=== PATIENT | male | born 1950 | race Caucasian/White ===

== ENCOUNTER 2024-04-06 13:18 | Inpatient (IN) | payer OTHER, MEDICARE ==
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
[2024-04-06] MEDS: HYDROmorphone 0.5 MG/0.5 ML SYRINGE IVP STA (14:50)
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
[2024-04-06 16:02] LABS: Basophils % (A) 0 %; Eosinophils % (A) 0 %; HCT 41.2 % (39.0-53.0); HGB 13.2 gm/dL (13.0-17.5); Hypochromasia Moderate; Lymphocytes # (A) 0.8 k/uL (1.0-4.8); Lymphocytes % (A) 5 %; MCH 29.2 pg (25.0-35.0); MCV 91.3 fL (80.0-100.0); Mean Platelet Volume 7.7; Monocytes # (A) 0.7 k/uL (0-1.0); Monocytes % (A) 4 %; Neutrophils # (A) 15.3 k/uL (1.3-7.7); Neutrophils % (A) 90 %; Platelet Count 241 k/uL (150-450); RBC 4.52 m/uL (4.30-5.90); RDW 14.5 % (11.5-15.5); WBC 16.9 k/uL (3.8-10.6)
[2024-04-06] MEDS: SODIUM CHLORIDE 0.9% 1,000 ML IV ONE (16:49)
[2024-04-06] MEDS: HYDROmorphone 0.5 MG/0.5 ML SYRINGE IVP PRN (16:51)
[2024-04-06 17:16] LABS: ALT 16 U/L (4-49); AST 25 U/L (17-59); African American GFR (CKD) >90 (>60 ml/min/1.73 sqM); Albumin 3.3 g/dL (3.5-5.0); Alkaline Phosphatase 173 U/L (38-126); Anion Gap 11 mmol/L; Blood Urea Nitrogen 27 mg/dL (9-20); Calcium 8.4 mg/dL (8.4-10.2); Carbon Dioxide 22 mmol/L (22-30); Chloride 105 mmol/L (98-107); Glucose 155 mg/dL (74-99); Non-African American GFR(CKD) 79 (>60 ml/min/1.73 sqM); Potassium 3.6 mmol/L (3.5-5.1); Sodium 138 mmol/L (137-145); Total Bilirubin 0.4 mg/dL (0.2-1.3); Total Protein 5.9 g/dL (6.3-8.2)
[2024-04-06] MEDS ORDERED: DEXTROSE 50% SYRINGE 50 ML IVP PRN ×2 (17:51)
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
[2024-04-06 20:19] LABS: Prothrombin Time 10.7 sec (10.0-12.5)
[2024-04-06 20:20] LABS: Partial Thromboplastin Time 23.6 sec (22.0-30.0)
[2024-04-06 21:03] LABS: Glucose,Whole Blood 180 mg/dL (70-110)
[2024-04-06] MEDS: ACETAMINOPHEN TAB 325 MG TAB PO PRN (21:49)
[2024-04-06] MEDS: INSULIN ASPART (NovoLOG) 100 UNIT/ML VIAL SQ SCH (21:50)
[2024-04-06] MEDS: METOPROLOL TARTRATE 25 MG TAB PO SCH (21:50)
[2024-04-06] MEDS: ONDANSETRON 4 MG/2 ML VIAL IVP PRN (21:54)
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
[2024-04-07] MEDS: MORPHINE SULFATE 2 MG/ML SYRINGE IVP PRN (01:09)
[2024-04-07 06:17] LABS: Glucose,Whole Blood 138 mg/dL (70-110)
[2024-04-07] MEDS: LEVOTHYROXINE 75 MCG TAB PO SCH (06:30)
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
[2024-04-07] MEDS ORDERED: PROPOFOL 10 MG/ML 20 ML VIAL IV ONE (09:00)
[2024-04-07] MEDS ORDERED: TRANEXAMIC 1,000 MG/100ML-NACL PREMIX BAG ONE (09:00)
[2024-04-07] MEDS ORDERED: ONDANSETRON 4 MG/2 ML VIAL ONE (09:00)
[2024-04-07] MEDS ORDERED: PHENYLEPHRINE 10 MG/ML VIAL ONE (09:00)
[2024-04-07] MEDS ORDERED: SUCCINYLCHOLINE CHLORIDE 200 MG/10 ML VIAL IV ONE (09:00)
[2024-04-07] MEDS ORDERED: fentaNYL (PF) 50 MCG/ML 2 ML AMP ONE (09:00)
[2024-04-07] MEDS ORDERED: NEOSTIGMINE 1 MG/ML 10 ML VIAL ONE (09:00)
[2024-04-07] MEDS ORDERED: GLYCOPYRROLATE 0.2 MG/ML 2 ML VIAL ONE (09:00)
[2024-04-07] MEDS ORDERED: ROCURONIUM 10 MG/ML (5 ML VIAL) IV ONE (09:00)
[2024-04-07] MEDS ORDERED: DEXAMETHASONE SOD PHOSPHATE 4 MG/ML 1 ML VIAL ONE (09:00)
[2024-04-07] MEDS ORDERED: KETAMINE HCL IN 0.9 % NACL 50 MG/5 ML SYRINGE ONE (09:00)
[2024-04-07] MEDS ORDERED: ePHEDrine 50 MG/ML 1 ML VIAL ONE (09:00)
[2024-04-07 09:04] LABS: Glucose,Whole Blood 135 mg/dL (70-110)
[2024-04-07] MEDS: LACTATED RINGERS 1,000 ML IV ONE ×2 (09:05)
[2024-04-07 09:37] LABS: ALT 16 U/L (10-49); AST 26 U/L (14-35); Albumin 3.8 g/dL (3.8-4.9); Albumin/Globulin Ratio 1.52 Ratio (1.60-3.17); Alkaline Phosphatase 158 U/L (41-126); Blood Urea Nitrogen 25.1 mg/dL (9.0-27.0); Calcium 8.9 mg/dL (8.7-10.3); Carbon Dioxide 26.4 mmol/L (21.6-31.8); Chloride 101 mmol/L (96-109); Globulin 2.5 g/dL (1.6-3.3); Glucose 148 mg/dL (70-110); Potassium 4.8 mmol/L (3.5-5.5); Sodium 139 mmol/L (135-145); Total Bilirubin 0.4 mg/dL (0.3-1.2); Total Protein 6.3 g/dL (6.2-8.2)
[2024-04-07 09:58] LABS: Basophils # (A) 0.02 X 10*3/uL (0.00-0.10); Basophils % (A) 0.2 %; Eosinophils # (A) 0.01 X 10*3/uL (0.04-0.35); Eosinophils % (A) 0.1 %; HCT 41.7 % (39.6-50.0); HGB 12.1 g/dL (13.0-17.0); Lymphocytes # (A) 0.92 X 10*3/uL (0.90-5.00); MCH 27.4 pg (27.0-32.0); MCV 94.3 FL (80.0-97.0); Mean Platelet Volume 11.2 FL (9.5-12.2); Monocytes # (A) 0.89 X 10*3/uL (0.20-1.00); Monocytes % (A) 7.8 %; NRBC Per 100 WBC 0 X 10*3/uL (0.00-0.01); Neutrophils # (A) 9.58 X 10*3/uL (1.80-7.70); Neutrophils % (A) 83.6 %; Platelet Count 243 X 10*3/uL (140-440); RBC 4.42 X 10*6/uL (4.40-5.60); RDW 14.6 % (11.5-14.5); WBC 11.46 X 10*3/uL (4.50-10.00)
[2024-04-07] MEDS: ceFAZolin 3,000 MG in SODIUM CHLORIDE 0.9% IRRIGATIO 3,000 ML IRRIGATION ONE (10:30)
[2024-04-07] MEDS: GENTAMICIN 80 MG in SODIUM CHLORIDE 0.9% IRRIGATIO 3,000 ML IRRIGATION ONE (10:31)
[2024-04-07] MEDS: ATORVASTATIN 40 MG TAB PO SCH (10:58)
[2024-04-07] MEDS: amLODIPine 10 MG TAB PO SCH (10:58)
[2024-04-07] MEDS: THROMBIN (BOVINE) 5,000 UNIT VIAL TOPICAL ONE (11:08)
[2024-04-07] MEDS: VANCOMYCIN 1,000 MG VIAL MISCELLANE ONE (12:51)
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
[2024-04-07] MEDS ORDERED: SENNOSIDES-DOCUSATE SODIUM 1 EACH TAB PO PRN (13:48)
[2024-04-07] MEDS ORDERED: MAGNESIUM HYDROXIDE 2,400 MG/30 ML CUP PO PRN (13:48)
[2024-04-07] MEDS ORDERED: HYDROcodone/APAP 5-325MG 1 EACH TAB PO PRN (13:48)
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
[2024-04-07] MEDS: IV FLUID CONTINUATION 1,000 ML IV ONE ×2 (14:10→14:15)
[2024-04-07] MEDS: IV FLUID CONTINUATION 500 ML IV ONE (14:15)
[2024-04-07] MEDS: HYDROmorphone 0.5 MG/0.5 ML SYRINGE IVP PRN (14:27)
[2024-04-07] MEDS: HYDROmorphone 0.5 MG/0.5 ML SYRINGE IVP STA (14:45)
[2024-04-07 16:45] LABS: Glucose,Whole Blood 163 mg/dL (70-110)
[2024-04-07] MEDS: HYDROcodone/APAP 10-325MG 1 EACH TAB PO PRN (18:06)
[2024-04-07] MEDS: FUROSEMIDE 40 MG TAB PO SCH (18:06)
[2024-04-07 20:50] LABS: Glucose,Whole Blood 202 mg/dL (70-110)
[2024-04-07] MEDS: CYCLOBENZAPRINE 5 MG TAB PO PRN (21:36)
[2024-04-08 06:40] LABS: Glucose,Whole Blood 152 mg/dL (70-110)
--- NOTE | 2024-04-08 07:48 | CT ---
EXAMINATION TYPE: CT cervical spine wo con DATE OF EXAM: 04/08/2024 7:41 AM COMPARISON: 04/06/2024. CLINICAL INDICATION: Male, 74 years old with history of s/p occiput-T2 decompr fusion; s/p occiput-T2 decompr fusion. TECHNIQUE: Axial CT images from the skull base to the inferior aspect of T2 we obtained without intra venous contrast. Coronal and sagittal reformatted images were also reviewed. Contrast used: mL of , (if blank None) Oral contrast used: (if blank None) CT DLP: 646.6 mGycm, Automated exposure control for dose reduction was used. FINDINGS: Fracture: There remains fracture through the odontoid process. Fracture through the anterior arch of C1 is present. Osseous structures: Postsurgical changes with fixation of the occiput through T2. Appears intact. Skin jim present. Surgical tubing terminates in the posterior surgical bed yara ctomy changes from C3 to C7 present. Multilevel degeneration changes throughout the spine with osteop hyte formation and facet joint arthropathy. Vertebral alignment: Postsurgical alignment. Spinal canal/Neural Foramina: No evidence of significant spinal canal narrowing. No evidence for sign ificant neural foraminal stenosis. Neck soft tissues: Prevertebral soft tissues are within normal limits. Other: The airway is patent. The lung apices are clear. IMPRESSION: 1. Postsurgical changes no immediate postop competition. Drainage tube in the posterior surgical bed . 2. Persistent fractures of the anterior arch of C1 and the odontoid process of C2. [facility], , 04/08/2024 7:46 AM
--- NOTE | 2024-04-08 09:06 | P.PN ---
Progress Note - Text Progress Note Date: 04/08/24 CT post op reviewed Occiput to T2 d/f. Hardware in good position. Good alignment. Alevism of C2 alignment. No complicating process seen at this time.
--- NOTE | 2024-04-08 09:38 | P.ANPRN ---
Procedure Note - Anesthesia - Invasive Line Right Arterial Line Time Out Performed: Yes ([id number]) Date of Procedure: 04/07/24 Time of Procedure: 08:46 Location of Patient: Phase I Preparation: Sterile Prep, Sterile Dressing Arterial Line Location: Radial (right) Ultrasound Used: No Purpose - Visualization and Identification of Vasculature: No Needle Guage: 20g Image Stored and Saved: No Narrative: Invasive line placement per sterile protocol utilized.
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
[2024-04-08 11:29] LABS: Basophils # (A) 0.01 X 10*3/uL (0.00-0.10); Basophils % (A) 0.1 %; Eosinophils # (A) 0 X 10*3/uL (0.04-0.35); Eosinophils % (A) 0 %; Lymphocytes # (A) 0.54 X 10*3/uL (0.90-5.00); Lymphocytes % (A) 5.8 %; MCH 27.4 pg (27.0-32.0); MCHC 28.6 g/dL (32.0-37.0); MCV 95.9 FL (80.0-97.0); Mean Platelet Volume 11.4 FL (9.5-12.2); Monocytes # (A) 0.75 X 10*3/uL (0.20-1.00); NRBC Per 100 WBC 0 X 10*3/uL (0.00-0.01); Neutrophils # (A) 7.96 X 10*3/uL (1.80-7.70); Neutrophils % (A) 85.5 %; Platelet Count 225 X 10*3/uL (140-440); RBC 3.65 X 10*6/uL (4.40-5.60); RDW 14.8 % (11.5-14.5); WBC 9.32 X 10*3/uL (4.50-10.00)
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
[2024-04-08 11:58] LABS: Glucose,Whole Blood 152 mg/dL (70-110)
[2024-04-08] MEDS: TAMSULOSIN 0.4 MG CAP.ER.24H PO SCH (11:59)
[2024-04-08 12:39] LABS: BUN/Creat Ratio 20.18 Ratio (12.00-20.00); Blood Urea Nitrogen 22.2 mg/dL (9.0-27.0); Carbon Dioxide 27.1 mmol/L (21.6-31.8); Chloride 101 mmol/L (96-109); Glucose 159 mg/dL (70-110); Sodium 136 mmol/L (135-145)
[2024-04-08 16:42] LABS: Glucose,Whole Blood 156 mg/dL (70-110)
[2024-04-08] MEDS: HYDROmorphone 1 MG/ML 1 ML SYRINGE IVP PRN (17:56)
[2024-04-08 20:35] LABS: Glucose,Whole Blood 227 mg/dL (70-110)
[2024-04-09 06:01] LABS: Glucose,Whole Blood 127 mg/dL (70-110)
[2024-04-09 07:38] VITALS: BP 172/82; PULSE 53; RESP 16; TEMP 97.4
[2024-04-09 09:00] LABS: HCT 34.9 % (39.6-50.0); HGB 10.5 g/dL (13.0-17.0); MCH 28.3 pg (27.0-32.0); MCHC 30.1 g/dL (32.0-37.0); MCV 94.1 FL (80.0-97.0); Mean Platelet Volume 11.3 FL (9.5-12.2); NRBC Per 100 WBC 0.02 X 10*3/uL (0.00-0.01); Platelet Count 209 X 10*3/uL (140-440); RBC 3.71 X 10*6/uL (4.40-5.60); WBC 11.48 X 10*3/uL (4.50-10.00)
[2024-04-09 09:12] LABS: BUN/Creat Ratio 20.09 Ratio (12.00-20.00); Blood Urea Nitrogen 22.1 mg/dL (9.0-27.0); Calcium 8.3 mg/dL (8.7-10.3); Carbon Dioxide 26.1 mmol/L (21.6-31.8); Chloride 100 mmol/L (96-109); Glucose 135 mg/dL (70-110); Potassium 4.2 mmol/L (3.5-5.5); Sodium 137 mmol/L (135-145)
[2024-04-09 10:29] LABS: Basophils # (A) 0.03 X 10*3/uL (0.00-0.10); Basophils % (A) 0.3 %; Eosinophils # (A) 0.07 X 10*3/uL (0.04-0.35); Eosinophils % (A) 0.6 %; Lymphocytes % (A) 11.3 %; Monocytes # (A) 1.55 X 10*3/uL (0.20-1.00); Monocytes % (A) 13.5 %; Neutrophils # (A) 8.48 X 10*3/uL (1.80-7.70); Neutrophils % (A) 73.9 %
[2024-04-09 12:05] LABS: Glucose,Whole Blood 172 mg/dL (70-110)
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
== END 2024-04-09 15:52 | disposition home or self-care (01) | DRG 402 ==
LOC: EC 13:18 → 4SSUR 16:07
PROVIDERS: ADMIT Orthopaedic Surgery; ATTEND Orthopaedic Surgery
PROC: 0RG60AJ Fusion of Thoracic Vertebral Joint with Interbody Fusion Device, Posterior Approach, Anterior Column, Open Approach (ICD-10-PCS; 2024-04-07)
PROC: 0RG6071 Fusion of Thoracic Vertebral Joint with Autologous Tissue Substitute, Posterior Approach, Posterior Column, Open Approach (ICD-10-PCS; 2024-04-07)
PROC: 0RG0071 Fusion of Occipital-cervical Joint with Autologous Tissue Substitute, Posterior Approach, Posterior Column, Open Approach (ICD-10-PCS; 2024-04-07)
PROC: 0RG20AJ Fusion of 2 or more Cervical Vertebral Joints with Interbody Fusion Device, Posterior Approach, Anterior Column, Open Approach (ICD-10-PCS; 2024-04-07)
PROC: 0RG2071 Fusion of 2 or more Cervical Vertebral Joints with Autologous Tissue Substitute, Posterior Approach, Posterior Column, Open Approach (ICD-10-PCS; 2024-04-07)
PROC: 0RG40AJ Fusion of Cervicothoracic Vertebral Joint with Interbody Fusion Device, Posterior Approach, Anterior Column, Open Approach (ICD-10-PCS; 2024-04-07)
PROC: 0RG4071 Fusion of Cervicothoracic Vertebral Joint with Autologous Tissue Substitute, Posterior Approach, Posterior Column, Open Approach (ICD-10-PCS; 2024-04-07)
PROC: 00NW0ZZ Release Cervical Spinal Cord, Open Approach (ICD-10-PCS; 2024-04-07)
PROC: 00NX0ZZ Release Thoracic Spinal Cord, Open Approach (ICD-10-PCS; 2024-04-07)
PROC: 0RG00AJ Fusion of Occipital-cervical Joint with Interbody Fusion Device, Posterior Approach, Anterior Column, Open Approach (ICD-10-PCS; principal; 2024-04-07 08:30)
DX: S12.030A Displaced posterior arch fracture of first cervical vertebra, initial encounter for closed fracture (principal); M47.12 Other spondylosis with myelopathy, cervical region; D62 Acute posthemorrhagic anemia; E11.9 Type 2 diabetes mellitus without complications; S12.01XA Stable burst fracture of first cervical vertebra, initial encounter for closed fracture; S12.110A Anterior displaced Type II dens fracture, initial encounter for closed fracture; I11.9 Hypertensive heart disease without heart failure; E03.9 Hypothyroidism, unspecified; E66.812 Obesity, class 2; E66.9 Obesity, unspecified; Z68.35 Body mass index [BMI] 35.0-35.9, adult; D72.828 Other elevated white blood cell count; S00.93XA Contusion of unspecified part of head, initial encounter; M48.02 Spinal stenosis, cervical region; M25.462 Effusion, left knee; S50.02XA Contusion of left elbow, initial encounter; T14.8XXA Other injury of unspecified body region, initial encounter; I25.10 Atherosclerotic heart disease of native coronary artery without angina pectoris; E78.5 Hyperlipidemia, unspecified; S00.83XA Contusion of other part of head, initial encounter; N44.8 Other noninflammatory disorders of the testis; R33.9 Retention of urine, unspecified; V47.0XXA Car driver injured in collision with fixed or stationary object in nontraffic accident, initial encounter; Y92.410 Unspecified street and highway as the place of occurrence of the external cause; Z96.653 Presence of artificial knee joint, bilateral; Z71.6 Tobacco abuse counseling; Z87.891 Personal history of nicotine dependence; Z79.890 Hormone replacement therapy; Z79.899 Other long term (current) drug therapy; Z79.82 Long term (current) use of aspirin; Z95.1 Presence of aortocoronary bypass graft; Z95.5 Presence of coronary angioplasty implant and graft; Z79.84 Long term (current) use of oral hypoglycemic drugs
CPT/HCPCS: 36415; 70450; 70498; 72040; 72125; 80048; 80053; 83036; 85025; 85610; 85730; 93005; 94760; 96374; 96376; 99291